=== PATIENT | male | born 1990 | race Caucasian/White ===

== ENCOUNTER 2016-08-03 04:07 | Emergency (ER) | payer MEDICAID, OTHER ==
[~2016-08-03] VITALS: Ht 182.9 cm; Wt 84.0 kg
[~2016-08-03 04:07] MED LIST: CYCL-36 PO; DICL-86 PO; IBUP800T23 PO; MACR100C PO; Z.0.NO CURRENT MEDS
[2016-08-03 04:08] VITALS: BP 119/68; PULSE 77; RESP 16; TEMP 97.7; O2SAT 98
--- NOTE | 2016-08-03 04:25 | PD ---
HPI Chief Complaint: Head Injury Time Seen by Provider: 04:25 Travel History International Travel<30 days: No Contact w/Intl Traveler<30days: No Traveled to known affect area: No History of Present Illness HPI 26-year-old with no significant medical history presents to emergency department following a syncopal episode while watching his receive an epidural. Patient struck his head on the ground. He immediately woke up. He helped himself up. Denies any focal deficits or weakness. Reports minor right sided head pain. No nausea or vomiting. States that he has passed out before in similar situations. He has no other symptoms to report. [facility] Past Medical History Medical History: Denies Significant Hx Cancer: No Cardiovascular Problems: No Diabetes: No Glaucoma: No Hepatitis: No Hiatal Hernia: No Hypertension: No Respiratory: No Thyroid Disease: No Past Surgical History Pacemaker: No Other Surgery: No Social History Alcohol Use: No Tobacco Use: Yes (OCC) Substance Use: Yes (MARIJUANA) Allergies-Medications (Allergen,Severity, Reaction): Coded Allergies: No Known Allergies (Verified , 08/03/16) Reported Meds & Prescriptions Reported Meds & Active Scripts Active No Active Prescriptions or Reported Medications Review of Systems Except as stated in HPI: all other systems reviewed are Neg Physical Exam Narrative GENERAL: Well-nourished, well-developed male patient, ambulatory with a nonantalgic gait no acute distress SKIN: Warm and dry. HEAD: Normocephalic. 4 cm in diameter palpable hematoma on the right parietal scalp. EARS: Bilateral pinnae and external canals appear within normal limits. Bilateral tympanic membranes without erythema, dullness or perforation. EYES: No scleral icterus. No injection or drainage. NECK: Supple, trachea midline. No JVD or lymphadenopathy. CARDIOVASCULAR: Regular rate and rhythm without murmurs, gallops, or rubs. RESPIRATORY: Breath sounds equal bilaterally. No accessory muscle use. GASTROINTESTINAL: Abdomen soft, non-tender, nondistended. MUSCULOSKELETAL: No cyanosis, or edema. BACK: Nontender without obvious deformity. No CVA tenderness. Data Data Last Documented VS Vital Signs Date Time Temp Pulse Resp B/P Pulse Ox O2 Delivery O2 Flow Rate FiO2 08/03/16 04:23 Room Air 08/03/16 04:08 97.7 77 16 119/[address] Brain W/O Iv Contrast(Rout) (08/03/16 ) Ibuprofen (Motrin) (08/03/16 04:30) Blood Glucose (08/03/16 04:18) MDM Medical Decision Making Medical Screen Exam Complete: Yes Emergency Medical Condition: Yes Medical Record Reviewed: Yes Differential Diagnosis Vasovagal response versus minor head injury versus intracranial hemorrhage versus concussion Narrative Course 26-year-old male presents to the emergency department for evaluation following a syncopal episode while watching his can receive an epidural. Patient has had episodes like this in the past during similar type the situation. This is likely a vasovagal response. Blood glucose was 107. CT imaging of the brain is ordered. This is negative for intracranial abnormality. Patient is scalpel on head injury precautions. He agrees to return immediately with any acute worsening symptoms. Diagnosis Primary Impression: Vasovagal syncope Additional Impression: Minor head injury Qualified Code: S00.90XA - Minor head injury, initial encounter Referrals: Primary Care Physician Patient Instructions: General Instructions, Head Injury (ED) Additional Instructions: Follow-up with primary care provider Return immediately to the emergency department with any acute worsening of symptoms Med/Other Pt SpecificInfo: No Change to Meds Scripts No Active Prescriptions or Reported Meds Disposition: 01 DISCHARGE HOME Condition: Stable NjJoceline estevez SHAMIKA Aug 03, 2016 04:25
[2016-08-03] MEDS ORDERED: IBUPROFEN 800 MG TAB PO ONE (04:30)
--- NOTE | 2016-08-03 04:49 | RADRPT ---
EXAM DATE/TIME: 08/03/2016 04:27 [place] COMPARISON: No previous studies available for comparison. INDICATIONS : Passed out hitting right side of head. RADIATION DOSE: 56.35 CTDIvol (mGy) MEDICAL HISTORY : None SURGICAL HISTORY : None. ENCOUNTER: Initial ACUITY: 1 day PAIN SCALE: 2/10 LOCATION: Right cranial TECHNIQUE: Multiple contiguous axial images were obtained of the head. Using automated exposure control and adj ustment of the mA and/or kV according to patient size, radiation dose was kept as low as reasonably a chievable to obtain optimal diagnostic quality images. FINDINGS: Noncontrast axial head CT demonstrates the ventricles to be normal in size and configuration with a n ormal sulcal pattern. No acute intracranial hemorrhage, acute cortical infarction, mass or midline sh ift is seen. There is benign-appearing mucosal disease in the left maxillary sinus. Posterior fossa s tructures are unremarkable. Bone windows are unremarkable. CONCLUSION: 1. No evidence of acute intracranial pathology. No masses are identified. Darron Kim MD on August 03, 2016 at 4:46 Board Certified Radiologist. This report was verified electronically.
== END 2016-08-03 04:56 | disposition home or self-care (01) ==
LOC: NEPB 04:07
DX: R55 Syncope and collapse (principal); S00.90XA Unspecified superficial injury of unspecified part of head, initial encounter; Z72.0 Tobacco use; X58.XXXA Exposure to other specified factors, initial encounter
CPT/HCPCS: 70450